=== PATIENT | female | born 1950 | race Native Hawaiian/Other Pacific Islander ===

== ENCOUNTER 2022-04-01 14:20 | Outpatient (CLI) | payer OTHER ==
[~2022-04-01 14:20] MED LIST: DEPO-TESTOS200 MG/M1 IM; DESOXIMETAS0.05 % EX; DONE10TA4 PO; LEVO0.1T6 PO; LOVA20TA PO; NAMENDA10 MG PO; PRINIVIL10 MG PO
== END 2022-04-01 19:06 | disposition home or self-care (01) ==
LOC: US 14:20
PROVIDERS: ATTEND Orthopaedic Surgery
DX: M54.50 Low back pain, unspecified (principal); M54.16 Radiculopathy, lumbar region; M48.062 Spinal stenosis, lumbar region with neurogenic claudication; M51.37 Other intervertebral disc degeneration, lumbosacral region; I87.2 Venous insufficiency (chronic) (peripheral); I70.212 Atherosclerosis of native arteries of extremities with intermittent claudication, left leg; I70.211 Atherosclerosis of native arteries of extremities with intermittent claudication, right leg